=== PATIENT | male | born 1985 | race Caucasian/White ===

== ENCOUNTER 2023-01-27 08:49 | Emergency (ER) | payer OTHER ==
[~2023-01-27] VITALS: Ht 167.6 cm; Wt 77.1 kg
[~2023-01-27 08:49] MED LIST: AMOX500 PO
[2023-01-27 09:02] VITALS: BP 138/94
[2023-01-27] MEDS ORDERED: Amoxicillin500 MG PO (09:23)
[2023-01-29] MEDS ORDERED: HYDR1TAB94 PO (10:04)
[2023-01-29] MEDS ORDERED: CLIN150 PO (10:04)
== END 2023-01-27 09:28 | disposition home or self-care (01) ==
LOC: ER 08:49
DX: K02.9 Dental caries, unspecified (principal); K04.7 Periapical abscess without sinus; F17.200 Nicotine dependence, unspecified, uncomplicated
CPT/HCPCS: 99282